=== PATIENT | female | born 1950 | race African-American/Black ===

== ENCOUNTER 2017-05-23 01:55 | Inpatient (IN) | payer OTHER ==
[2017-05-23] VITALS (13 sets, daily range): BP systolic 101–171; BP diastolic 55–80; PULSE 64–108; RESP 14–26; TEMP 97.8–98.8; O2SAT 96–100
[~2017-05-23] VITALS: Ht 167.6 cm; Wt 107.6 kg
[~2017-05-23 01:55] MED LIST: ENAL10; KETO10 PO; POTA-267 PO; SYNT100T OR; [UNRECOGNIZED DRUG - OTHER]
[2017-05-23] MEDS ORDERED: RESP: ALBUTEROL 2.5 MG/IPRATROPIUM 0.5 MG NEB (SCH) NEB ONE (02:15)
[2017-05-23] MEDS ORDERED: SYMB160A INH (02:17)
[2017-05-23] MEDS ORDERED: VALS1TAB63 PO (02:24)
[2017-05-23] MEDS ORDERED: DAPA1TAB3 PO (02:24)
[2017-05-23] MEDS ORDERED: BUME1TAB PO (02:24)
[2017-05-23] MEDS ORDERED: LEVO.1 PO (02:24)
[2017-05-23] MEDS ORDERED: METF1000 PO (02:24)
[2017-05-23] MEDS: RESP: ALBUTEROL 2.5 MG/IPRATROPIUM 0.5 MG NEB (SCH) INH ×7 (02:27→04:00)
--- NOTE | 2017-05-23 02:28 | PD ---
HPI Chief Complaint: Respiratory Symptoms Time Seen by Provider: 02:11 Travel History International Travel<30 days: No Contact w/Intl Traveler<30days: No Traveled to known affect area: No History of Present Illness HPI The patient is a 66 year old female who presents to the [facility] emergency department with a history of undergoing of parathyroidectomy on May 10 and awakening from sound sleep at 1 AM with shortness of breath. She reports that she felt well prior to going to bed. She denies having any lower extremity edema, calf pain, erythema, or rashes. The patient reports that she does use an inhaler mainly during season changes for shortness of breath. She is unsure of the diagnosis. She reports that she did smoke cigarettes up until 2008. She reports that she has wheezing. She denies having any cough or congestion. She denies having any recent fevers or chills. She does report having nausea and vomiting one time earlier today. She denies having any diarrhea. She denies having any chest pain or chest pressure. The patient incidentally reports that she has had a hoarse quality to her voice since having her surgery. On review of systems otherwise, she denies having any increase neck pain or swelling, abdominal pain, urinary symptoms, or neurologic symptoms. FOR[facility]LY [facility] Past Medical History Narrative Medical The patient's past medical history is significant for diabetes, osteoporosis, hypertension, hyperlipidemia, hypothyroidism status post thyroidectomy, history of breast cancer. Asthma: Yes Cancer: Yes (breast) Diminished Hearing: No Thyroid Disease: Yes Tetanus Vaccination: < 5 Years Influenza Vaccination: Yes ?: Not LMP: menapause Past Surgical History Narrative Surgical The patient's past surgical history is significant for bilateral breast biopsies that were benign, bilateral tubal ligation, thyroidectomy, parathyroidectomy Other Surgery: Yes (thyriod and parathyroid) Social History Alcohol Use: No Tobacco Use: No Substance Use: No Allergies-Medications (Allergen,Severity, Reaction): Coded Allergies: latex (Verified Allergy, Unknown, 05/23/17) enalapril (Verified Adverse Reaction, Mild, cough, 05/23/17) Reported Meds & Prescriptions Reported Meds & Active Scripts Active Reported Synthroid (Levothyroxine Sodium) 100 Mcg Tab 100 Mcg PO DAILY Bumetanide 1 Mg Tab 1 Mg PO DAILY Farxiga (Dapagliflozin) 10 Mg Tab 10 Mg PO DAILY Metformin (Metformin HCl) 1,000 Mg Tab 1,000 Mg PO BIDPC Valsartan 40 Mg Tab 20 Mg PO BID Symbicort Inh (Budesonide/Formoterol Fumarate) 160-4.5 Mcg/Act Aero 1 Puff INH Q12HR Review of Systems Except as stated in HPI: all other systems reviewed are Neg General / Constitutional: No: Fever Eyes: No: Visual changes HENT: No: Headaches, Neck Stiffness Cardiovascular: Positive: Dyspnea on exertion, No: Chest Pain or Discomfort Respiratory: Positive: Shortness of Breath, Wheezing Gastrointestinal: Positive: Nausea, Vomiting, No: Diarrhea, Abdominal Pain Genitourinary: No: Dysuria Musculoskeletal: No: Pain Skin: No Rash Neurologic: No: Weakness Psychiatric: No: Depression Endocrine: No: Polydipsia Hematologic/Lymphatic: No: Easy Bruising Physical Exam Narrative General: The patient is a well-developed well-nourished female, short of breath on arrival with audible wheezes. Head and Neck exam: Head is normocephalic atraumatic. Eyes: EOMI, pupils are equal round and reactive to light. Nose: Midline septum with pink mucous membranes Mouth: Dentition unremarkable. Moist mucus membranes. Posterior oropharynx is not erythematous. No tonsillar hypertrophy. Uvula midline. Airway patent. Neck: No palpable lymphadenopathy. No nuchal rigidity. No thyromegaly. A Band- Aid is in place on the anterior lower neck. There is no edema, warmth, drainage , or erythema noted at the postoperative site. Cardiovascular: Regular rate and rhythm without murmurs, gallops, or rubs. No pulse deficit to the extremities on simultaneous auscultation and palpation of her radial artery. Lungs: Soft expiratory wheezes are audible, and inspiratory wheeze/possible stridor was also audible. No rhonchi, no crackles. No accessory muscle use noted. No tripoding. No conversational dyspnea. Abdomen: Soft, without tenderness to palpation in all 4 quadrants of the abdomen. No guarding, rebound, or rigidity. Normal bowel sounds are audible. No tenderness on palpation of McBurney's point. Extremities: No clubbing, cyanosis, or edema. 2+ pulses in all 4 extremities. No calf tenderness on palpation. Negative Homans sign. No palpable cords. Back: No costovertebral angle tenderness to palpation. Neurologic Exam: Grossly nonfocal. Skin Exam: No rash noted. Intact skin that is warm and dry. Data Data Last Documented VS Vital Signs Date Time Temp Pulse Resp B/P (MAP) Pulse Ox O2 Delivery O2 Flow Rate FiO2 05/23/17 05:18 96 Nasal Cannula 2.00 05/23/17 04:15 18 05/23/17 02:40 21 05/23/17 02:13 89 05/23/17 01:59 98.0 Orders Orders Albuterol-Ipratropium Neb (Duoneb Neb) (05/23/17 02:15) Complete Blood Count With Diff (05/23/17 02:21) Comprehensive Metabolic Panel (05/23/17 02:21) B-Type Natriuretic Peptide (05/23/17 02:21) Act Partial Throm Time (Ptt) (05/23/17 02:21) Prothrombin Time / Inr (Pt) (05/23/17 02:21) Magnesium (Mg) (05/23/17 02:21) Ckmb (Isoenzyme) Profile (05/23/17 02:21) Troponin I (05/23/17 02:21) Urinalysis - C+S If Indicated (05/23/17 02:21) Iv Access Insert/Monitor (05/23/17 02:21) Electrocardiogram (05/23/17 02:21) Ecg Monitoring (05/23/17 02:21) Oximetry (05/23/17 02:21) Oxygen Administration (05/23/17 02:21) Chest, Single Ap (05/23/17 02:21) Sodium Chloride 0.9% Flush (Ns Flush) (05/23/17 02:30) Methylprednisolone So Succ Inj (Solumedr (05/23/17 02:30) Albuterol-Ipratropium Neb (Duoneb Neb) (05/23/17 02:30) D-Dimer (05/23/17 02:28) Ct Soft Tiss Neck W Iv Cont (05/23/17 02:46) CKMB (05/23/17 02:30) CKMB% (05/23/17 02:30) Albuterol-Ipratropium Neb (Duoneb Neb) (05/23/17 03:30) Iohexol 350 Inj (Omnipaque 350 Inj) (05/23/17 03:56) Racemic Epinephrine 2.25% Neb (Racepinep (05/23/17 05:00) Radiology Film Requests (05/23/17 ) Consult General Surgery (05/23/17 ) Invasive Rad Dept Consult (05/23/17 ) Admit Order (Ed Use Only) (05/23/17 06:37) Labs Laboratory Tests Test 05/23/17 02:30 White Blood Count 8.6 TH/MM3 Red Blood Count 4.33 MIL/MM3 Hemoglobin 10.5 GM/DL Hematocrit 33.5 % Mean Corpuscular Volume 77.3 FL Mean Corpuscular Hemoglobin 24.3 PG Mean Corpuscular Hemoglobin Concent 31.5 % Red Cell Distribution Width 17.3 % Platelet Count 215 TH/MM3 Mean Platelet Volume 10.1 FL Neutrophils (%) (Auto) 52.8 % Lymphocytes (%) (Auto) 37.8 % Monocytes (%) (Auto) 8.1 % Eosinophils (%) (Auto) 0.9 % Basophils (%) (Auto) 0.4 % Neutrophils # (Auto) 4.5 TH/MM3 Lymphocytes # (Auto) 3.2 TH/MM3 Monocytes # (Auto) 0.7 TH/MM3 Eosinophils # (Auto) 0.1 TH/MM3 Basophils # (Auto) 0.0 TH/MM3 CBC Comment DIFF FINAL Differential Comment Prothrombin Time 11.1 SEC Prothromb Time International Ratio 1.1 RATIO Activated Partial Thromboplast Time 25.4 SEC D-Dimer Quantitative (PE/DVT) 0.95 MG/L FEU Blood Urea Nitrogen 19 MG/DL Creatinine 1.51 MG/DL Random Glucose 150 MG/DL Total Protein 7.1 GM/DL Albumin 3.4 GM/DL Calcium Level 8.5 MG/DL Magnesium Level 2.3 MG/DL Alkaline Phosphatase 71 U/L Aspartate Amino Transf (AST/SGOT) 18 U/L Alanine Aminotransferase (ALT/SGPT) 33 U/L Total Bilirubin 0.2 MG/DL Sodium Level 142 MEQ/L Potassium Level 3.7 MEQ/L Chloride Level 106 MEQ/L Carbon Dioxide Level 25.3 MEQ/L Anion Gap 11 MEQ/L Estimat Glomerular Filtration Rate 42 ML/MIN Total Creatine Kinase 149 U/L Creatine Kinase MB 0.8 NG/ML Troponin I LESS THAN 0.02 NG/ML B-Type Natriuretic Peptide 8 PG/ML MDM Medical Decision Making Medical Screen Exam Complete: Yes Emergency Medical Condition: Yes Medical Record Reviewed: Yes Interpretation(s) Last Impressions Neck CT 05/23/17 0246 Signed Impressions: Service Date/Time: Tuesday, May 23, 2017 03:56 - CONCLUSION: 1. 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 2. Postsurgical findings in the low neck recent thyroid surgery. There is a focal fluid collection measuring 4.3 x 1.5 cm anterior to the thyroid. Brandon Ortega MD Chest X-Ray 05/23/17220 Signed Impressions: Service Date/Time: Tuesday, May 23, 2017 02:38 - CONCLUSION: Fullness and indistinctness of the central bronchopulmonary markings suggesting pulmonary edema. Brandon Ortega MD Differential Diagnosis Reactive airway exacerbation from seasonal allergies, versus stridor from postoperative hematoma, versus postoperative abscess, versus pulmonary embolism , versus COPD Narrative Course During the course of the patient's emergency department visit, the patient's history, examination, and differential diagnosis were reviewed with the patient. The patient was placed on a cardiac catheterization technician with oximetry and frequent blood pressure monitoring. The patient had IV access obtained and blood work sent for analysis. The patient had an EKG done on arrival that shows a sinus rhythm with a first-degree AV block at rate of 86, QRS duration 78 ms, QTC [address] with contrast of the soft tissues of the neck was ordered. The patient was initially provided duo nebs 3, Solu-Medrol 125 mg IV. The patient's laboratory studies were reviewed and remarkable for a white count of 8.6, hemoglobin 10.5, platelets 215 with a monocytosis at 8.1. CMP is remarkable for BUN of 19, creatinine 1.51, glucose 150, cardiac enzymes within normal limits, BNP is 8, PT PTT within normal limits, d-dimer 0.95 Radiology studies were reviewed and remarkable for chest x-ray that shows fullness and indistinction of the central bronchopulmonary markings suggesting pulmonary edema. CT scan of the neck with contrast reveals severe concentric narrowing of the supraglottic airway to less than 3 mm, postsurgical findings in the low neck related to recent thyroid surgery. There is a focal fluid collection measuring 4.3 x 1.5 cm anterior to the thyroid. At approximately 5:50 AM I received a call back from the physician assistant refinery operator covering for the nuclear fuels reclamation engineer, , at the [facility]. The physician assistant refinery operator is Flaquito Levy. I discussed with him the patient's history, examination findings, laboratory studies, and imaging. I expressed to him my concern about the patient's fluid collection in the anterior neck postop as well as the patient's supraglottic airway narrowing. He reported to me that he will discuss this further with his attendings and call me back to determine the best plan of care for the patient. I explained that the patient is currently resting comfortably and feeling improved. She is on supplemental oxygen at 2 L. The patient did receive racemic epinephrine as a nebulizer treatment. The patient is made aware of the imaging findings and is awaiting a plan of care. He reviewed the case with his attending and they recommended that the patient be admitted for close observation and to the intensive care unit. A call has been placed out to the social studies teacher on-call regarding this patient's case. A call has also been placed out to the general surgeon on-call, Dr. Rosales. These 2 calls were placed out at approximately 6 AM. I spoke to at approximately 6:10 AM regarding patient's history, examination findings and imaging results. He will see the patient in consultation. He recommended a consultation with interventional radiology for ultrasound-guided drainage catheter placement in the fluid collection that is present postoperatively. The patient's results were discussed with the patient, including the plan of care. I explained that further testing and/ or monitoring is indicated based on the patient's history, examination, and/ or laboratory findings. Therefore, I recommended admission for additional evaluation. The patient expressed understanding and was agreeable with this plan. The patient was admitted to the hospital in guarded condition and sent to a bed under the care of the social studies teacher service. Physician Communication Physician Communication The patient's case including history, pertinent physical examination findings, and laboratory studies were discussed with the covering healthcare provider for Dr. Hilliard at the [facility], Dr. Rosales, and Dr. Villasenor. It was agreed that the patient would be admitted to the social studies teacher's service. Diagnosis Primary Impression: Supraglottic edema Additional Impressions: Fluid collection at surgical site Qualified Codes: T88.8XXA - Other specified complications of surgical and medical care, not elsewhere classified, initial encounter Shortness of breath Admitting Information Admitting Physician Requests: Admit Sherri Sierra MD May 23, 2017 02:28
[2017-05-23] MEDS ORDERED: methylPREDNISolone SOD SUCC 125 MG/2 ML VIAL IV PUSH ONE (02:30)
[2017-05-23] MEDS ORDERED: SODIUM CHLORIDE 0.9% FLUSH 10 ML FLUSH IVF PRN (02:30)
[2017-05-23 02:47] LABS: AUTOMATED NEUTROPHIL # 4.5 TH/MM3 (1.8-7.7); BASOPHIL % 0.4 % (0.0-2.0); EOSINOPHIL # 0.1 TH/MM3 (0-0.4); EOSINOPHIL % 0.9 % (0.0-4.0); HEMATOCRIT 33.5 % (35.0-46.0); HEMOGLOBIN 10.5 GM/DL (11.6-15.3); LYMPH % 37.8 % (9.0-44.0); LYMPHOCYTE # 3.2 TH/MM3 (1.0-4.8); MEAN CELL VOLUME 77.3 FL (80.0-100.0); MEAN CORPUSCULAR HEMOGLOBIN 24.3 PG (27.0-34.0); MEAN CORPUSCULAR HGB CONC 31.5 % (32.0-36.0); MEAN PLATELET VOLUME 10.1 FL (7.0-11.0); MONO % 8.1 % (0.0-8.0); MONOCYTE # 0.7 TH/MM3 (0-0.9); NEUT % 52.8 % (16.0-70.0); PLATELET COUNT 215 TH/MM3 (150-450); RED BLOOD COUNT 4.33 MIL/MM3 (4.00-5.30); RED CELL DISTRIBUTION WIDTH 17.3 % (11.6-17.2); WHITE BLOOD COUNT 8.6 TH/MM3 (4.0-11.0)
[2017-05-23 03:02] LABS: ALBUMIN 3.4 GM/DL (3.4-5.0); ALT (GPT) 33 U/L (10-53); AST (GOT) 18 U/L (15-37); BICARBONATE 25.3 MEQ/L (21.0-32.0); BLOOD UREA NITROGEN 19 MG/DL (7-18); CALCIUM 8.5 MG/DL (8.5-10.1); CHLORIDE 106 MEQ/L (98-107); CREATININE 1.51 MG/DL (0.50-1.00); GLOMERULAR FILTRATION RATE 42 ML/MIN (>89); GLUCOSE,RANDOM 150 MG/DL (74-106); MAGNESIUM 2.3 MG/DL (1.5-2.5); SODIUM (NA) 142 MEQ/L (136-145)
[2017-05-23 03:03] LABS: INTERNATIONAL NORMALIZED RATIO 1.1 RATIO; PROTHROMBIN TIME - PATIENT 11.1 SEC (9.8-11.6)
[2017-05-23 03:06] LABS: ALKALINE PHOSPHATASE 71 U/L (45-117); TOTAL BILIRUBIN ADULT 0.2 MG/DL (0.2-1.0); TOTAL PROTEIN 7.1 GM/DL (6.4-8.2); TROPONIN I LESS THAN 0.02 NG/ML (0.02-0.05)
--- NOTE | 2017-05-23 03:07 | RADRPT ---
EXAM DATE/TIME: 05/23/2017 02:38 [facility] COMPARISON: No previous studies available for comparison. INDICATIONS : Short of breath. MEDICAL HISTORY : None. SURGICAL HISTORY : None. ENCOUNTER: Initial ACUITY: 1 day PAIN SCORE: 0/10 LOCATION: Bilateral chest FINDINGS: There is indistinctness of the central bronchopulmonary markings and mild peribronchial thickening morgan ggesting pulmonary edema. The heart is upper limits normal size. Both hemidiaphragms are well delin eated. CONCLUSION: Fullness and indistinctness of the central bronchopulmonary markings suggesting pulmonary edema. Brandon Ortega MD on May 23, 2017 at 3:05 Board Certified Radiologist. This report was verified electronically.
[2017-05-23] MEDS ORDERED: IOHEXOL 350 MG/ML 10 ML VIAL (for RAD DIAG) IVCONTRAST ONE (03:56)
--- NOTE | 2017-05-23 04:30 | RADRPT ---
EXAM DATE/TIME: 05/23/2017 03:56 [facility] COMPARISON: No previous studies available for comparison. INDICATIONS : Difficulty breathing. Post op thyroidectomy IV CONTRAST: 70 cc Omnipaque 350 (iohexol) IV RADIATION DOSE: 27.09 CTDIvol (mGy) MEDICAL HISTORY : Carcinoma, breast. Asthma SURGICAL HISTORY : Thyroidectomy. ENCOUNTER: Initial ACUITY: 1 day PAIN SCALE: 4/10 LOCATION: neck chest TECHNIQUE: Volumetric scanning of the neck was performed. Using automated exposure control and adjustment of th e mA and/or kV according to patient size, radiation dose was kept as low as reasonably achievable to obtain optimal diagnostic quality images. DICOM format image data is available electronically for r eview and comparison. FINDINGS: NASOPHARYNX: The nasopharyngeal airway has a normal configuration. No mucosal thickening or mass is seen. OROPHARYNX: The intrinsic muscles of the tongue are symmetric. The tonsillar pillars are intact. The prevertebr al soft tissues are not thickened. LARYNX: There is concentric severe narrowing of the supraglottic airway the airway narrowed to 3 mm at this p oint. Normal diameter at the level of the true cords and subglottic region. PARAPHARYNGEAL: The parapharyngeal space is intact. SALIVARY GLANDS: The parotid and submandibular glands are intact. LYMPH NODES: No enlarged or necrotic-appearing nodes. THYROID: The left lobe of the thyroid has decreased enhancement suggesting nodule. There is subcutaneous flui d collection anterior to the thyroid measuring 4.3 x 1.5 cm, probably related to recent surgery. BONES: Unremarkable. CONCLUSION: 1. 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 2. Postsurgical findings in the low neck recent thyroid surgery. There is a focal fluid collection m easuring 4.3 x 1.5 cm anterior to the thyroid. Brandon Ortega MD on May 23, 2017 at 4:26 Board Certified Radiologist. This report was verified electronically.
[2017-05-23] MEDS ORDERED: RESP: RACEPINEPHRINE 2.25% 0.5 ML NEB NEB ONE (05:00)
--- NOTE | 2017-05-23 08:44 | EKG ---
Date Performed: 05/23/2017 Time Performed: 02:17:37 PTAGE: 66 years EKG: Sinus rhythm WITH FIRST DEGREE AV BLOCK LOW QRS VOLTAGE IN PRECORDIAL LEADS ABNORMAL ECG NO PREVIOUS TRACING DOCTOR: Juwan Richards Interpretating Date/Time 05/23/2017 08:27:00
[2017-05-23] MEDS ORDERED: LACTULOSE SYRUP 20 GM/30 ML CUP PO PRN (09:15)
[2017-05-23] MEDS ORDERED: GLUCAGON 1 MG/ML VIAL OTHER PRN (09:15)
[2017-05-23] MEDS ORDERED: RESP: ALBUTEROL 2.5 MG/IPRATROPIUM 0.5 MG NEB (PRN) INH (09:15)
[2017-05-23] MEDS ORDERED: SENNOSIDES 8.6 MG TAB PO PRN (09:15)
[2017-05-23] MEDS ORDERED: MAGNESIUM HYDROXIDE SUSP 30 ML CUP PO PRN (09:15)
[2017-05-23] MEDS ORDERED: MISCELLANEOUS NURSING INFORMATION XX SCH (09:15)
[2017-05-23] MEDS ORDERED: CHLORHEXIDINE GLUCONATE 2 % 1 PACK (2 CLOTHS) TOP PRN (09:15)
[2017-05-23] MEDS ORDERED: DEXTROSE 50% IN WATER 50 ML VIAL(D50) IV PUSH PRN (09:15)
[2017-05-23] MEDS ORDERED: BISACODYL 10 MG SUPP RECTAL PRN (09:15)
[2017-05-23] MEDS ORDERED: ROCURONIUM INJ 50 MG/5 ML VIAL IV ONE (09:45)
[2017-05-23] MEDS ORDERED: KETAMINE HCL 500 MG/5 ML VIAL IM ONE (09:45)
[2017-05-23] MEDS ORDERED: RESP: RACEPINEPHRINE 2.25% 0.5 ML NEB NEB PRN (09:45)
[2017-05-23] MEDS ORDERED: OXYMETAZOLINE HCL 0.05% 15 ML NASAL SPRAY NASAL ONE (09:45)
[2017-05-23] MEDS ORDERED: PROPOFOL 1000 MG/100 ML INJ 100 ML IV PRN (09:45)
[2017-05-23] MEDS ORDERED: MIDAZOLAM HCL 5 MG/ML VIAL (1 ML) IV PUSH ONE (09:45)
[2017-05-23] MEDS ORDERED: fentaNYL CITRATE 250 MCG/5 ML AMP IV PUSH ONE (09:45)
[2017-05-23] MEDS ORDERED: PILL SPLITTER OTHER PRN (09:45)
[2017-05-23] MEDS ORDERED: LIDOCAINE HCL 1% 50 ML VIAL INFIL ONE (09:45)
[2017-05-23] MEDS ORDERED: LIDOCAINE HCL 1% PF 30 ML VIAL INFIL ONE (10:30)
[2017-05-23] MEDS: PROPOFOL 1000 MG/100 ML INJ 100 ML IV PRN ×3 (11:00→21:52)
[2017-05-23] MEDS ORDERED: LABETALOL HCL 100 MG/20 ML VIAL IV PUSH PRN (11:30)
--- NOTE | 2017-05-23 11:43 | HHI.HP ---
[facility] Service Critical Care Medicine Primary Care Physician Fady Lundy III, MD Admission Diagnosis Supraglottic airway constriction, postop fluid collection of neck Diagnosis: (1) Acute respiratory failure Diagnosis: Principal (2) Supraglottic edema Diagnosis: Principal (3) Shortness of breath Diagnosis: Principal (4) Fluid collection at surgical site Diagnosis: Secondary Chief Complaint: I can't breathe. Travel History International Travel<30 Days: No Contact w/Intl Traveler <30 Da: No Traveled to Known Affected Are: No History of Present Illness 66 y/o woman s/p parathyroidectomy May 10 at [facility] (second operation for patient in the thyroid region). Developed severe SOB earlier today and came to ED with sridor and labored effort. She responded to racemic epinephrine but required 5 treatments over several hours because of recurrent symptoms. On arrival to [facility] she was tugging very mildly but with any exertion the strider worsened drastically. CT neck revealed supraglottic tissue obstructing airway. We attempted to ispect airway using low dose versed but the view was inadequate. With deeper sedation and relaxant the hypopharynx was easily inspected. All of the soft tissue was easily moved aside and this area was widely patent. The vocal cords were not edematous or inflamed. The glottic opening was slightly small but easily accommodated a #7 orotracheal tube. Below the cords was normal. My gut impression is that this is vocal cord dysfunction related to nerve praxis , probably temporary. Past Family Social History Allergies: Coded Allergies: No Known Allergies (Unverified Adverse Reaction, Unknown, 05/23/17) Past Medical History Past Medical History Narrative Medical The patient's past medical history is significant for diabetes, osteoporosis, hypertension, hyperlipidemia, hypothyroidism status post thyroidectomy, history of breast cancer. Asthma: Yes Cancer: Yes (breast) Diminished Hearing: No Thyroid Disease: Yes Tetanus Vaccination: < 5 Years Influenza Vaccination: Yes ?: Not LMP: menapause Past Surgical History Narrative Surgical The patient's past surgical history is significant for bilateral breast biopsies that were benign, bilateral tubal ligation, thyroidectomy, parathyroidectomy Other Surgery: Yes (thyriod and parathyroid) Social History Alcohol Use: No Tobacco Use: No Substance Use: No Allergies-Medications Allergies-Medications (Allergen,Severity, Reaction): Coded Allergies: No Known Allergies (Unverified Adverse Reaction, Unknown, 05/23/17) Reported Meds & Prescriptions Reported Meds & Active Scripts Active Reported Synthroid (Levothyroxine Sodium) 100 Mcg Tab 100 Mcg PO DAILY Bumetanide 1 Mg Tab 1 Mg PO DAILY Farxiga (Dapagliflozin) 10 Mg Tab 10 Mg PO DAILY Metformin (Metformin HCl) 1,000 Mg Tab 1,000 Mg PO BIDPC Valsartan 40 Mg Tab 20 Mg PO BID Symbicort Inh (Budesonide/Formoterol Fumarate) 160-4.5 Mcg/Act Aero 1 Puff INH Q12HR Physical Exam Vital Signs Vital Signs Date Time Temp Pulse Resp B/P (MAP) Pulse Ox O2 Delivery O2 Flow Rate FiO2 05/23/17 11:05 98 60 05/23/17 10:10 05/23/17 09:32 97.9 99 19 143/74 (97) Room Air 05/23/17 05:18 96 Nasal Cannula 2.00 05/23/17 04:15 100 Nasal Cannula 2.00 05/23/17 04:15 18 100 Nasal Cannula 2.00 05/23/17 02:40 100 21 05/23/17 02:25 99 Nasal Cannula 2.00 05/23/17 02:13 89 26 171/80 (110) 100 Aerosol Mask 05/23/17 02:13 89 28 99 Aerosol Mask 05/23/17 01:59 98.0 95 24 157/70 (99) 99 Physical Exam Gen: Alert, hoarse speech since surgery on 05/10. Head: Atraumatic. Neck: Supple, audible stridor. General fullness, healing anterior transverse scar. Lungs: Clear aside from transmitted airway noises. Labored pattern Heart: NL S1S2, RRR, No JVD. Abdomen: Benign, soft. BS active. No tenderness. Extremities: Warm, well perfused. Neuro: Moves 4 limbs with 5/5 power. O X 3, alert. Hoarse speech. Laboratory Laboratory Tests Test 05/23/17 02:30 White Blood Count 8.6 Red Blood Count 4.33 Hemoglobin 10.5 Hematocrit 33.5 Mean Corpuscular Volume 77.3 Mean Corpuscular Hemoglobin 24.3 Mean Corpuscular Hemoglobin Concent 31.5 Red Cell Distribution Width 17.3 Platelet Count 215 Mean Platelet Volume 10.1 Neutrophils (%) (Auto) 52.8 Lymphocytes (%) (Auto) 37.8 Monocytes (%) (Auto) 8.1 Eosinophils (%) (Auto) 0.9 Basophils (%) (Auto) 0.4 Neutrophils # (Auto) 4.5 Lymphocytes # (Auto) 3.2 Monocytes # (Auto) 0.7 Eosinophils # (Auto) 0.1 Basophils # (Auto) 0.0 CBC Comment DIFF FINAL Differential Comment Prothrombin Time 11.1 Prothromb Time International Ratio 1.1 Activated Partial Thromboplast Time 25.4 D-Dimer Quantitative (PE/DVT) 0.95 Blood Urea Nitrogen 19 Creatinine 1.51 Random Glucose 150 Total Protein 7.1 Albumin 3.4 Calcium Level 8.5 Magnesium Level 2.3 Alkaline Phosphatase 71 Aspartate Amino Transf (AST/SGOT) 18 Alanine Aminotransferase (ALT/SGPT) 33 Total Bilirubin 0.2 Sodium Level 142 Potassium Level 3.7 Chloride Level 106 Carbon Dioxide Level 25.3 Anion Gap 11 Estimat Glomerular Filtration Rate 42 Total Creatine Kinase 149 Creatine Kinase MB 0.8 Troponin I LESS THAN 0.02 B-Type Natriuretic Peptide 8 Result Diagram: 05/23/1722905/23/17229 Caprini VTE Risk Assessment Caprini VTE Risk Assessment: Mod/High Risk (score >= 2) Caprini Risk Assessment Model Point Value = 1 Point Value = 2 Point Value = 3 Point Value = 5 Age 41-60 Minor surgery BMI > 25 kg/m2 Swollen legs Varicose veins or History of unexplained or recurrent spontaneous Oral contraceptives or hormone replacement Sepsis (< 1 month) Serious lung disease, including pneumonia (< 1 month) Abnormal pulmonary function Acute myocardial infarction Congestive heart failure (< 1 month) History of inflammatory bowel disease Medical patient at bed rest Age 61-74 Arthroscopic surgery Major open surgery (> 45 min) Laparoscopic surgery (> 45 min) Malignancy Confined to bed (> 72 hours) Immobilizing plaster cast Central venous access Age >= 75 History of VTE Family history of VTE Factor V Leiden Prothrombin [id number] Lupus anticoagulant Anticardiolipin antibodies Elevated serum homocysteine Heparin-induced thrombocytopenia Other congenital or acquired thrombophilia Stroke (< 1 month) Elective arthroplasty Hip, pelvis, or leg fracture Acute spinal cord injury (< 1 month) Prophylaxis Regimen Total Risk Factor Score Risk Level Prophylaxis Regimen 0-1 Low Early ambulation 2 Moderate Order ONE of the following: *Sequential Compression Device (SCD) *Heparin 5000 units SQ BID 3-4 Higher Order ONE of the following medications: *Heparin 5000 units SQ TID *Enoxaparin/Lovenox 40 mg SQ daily (WT < 150 kg, CrCl > 30 mL/min) *Enoxaparin/Lovenox 30 mg SQ daily (WT < 150 kg, CrCl > 10-29 mL/min) *Enoxaparin/Lovenox 30 mg SQ BID (WT < 150 kg, CrCl > 30 mL/min) AND/OR *Sequential Compression Device (SCD) 5 or more Highest Order ONE of the following medications: *Heparin 5000 units SQ TID (Preferred with Epidurals) *Enoxaparin/Lovenox 40 mg SQ daily (WT < 150 kg, CrCl > 30 mL/min) *Enoxaparin/Lovenox 30 mg SQ daily (WT < 150 kg, CrCl > 10-29 mL/min) *Enoxaparin/Lovenox 30 mg SQ BID (WT < 150 kg, CrCl > 30 mL/min) AND *Sequential Compression Device (SCD) Assessment and Plan Problem List: (1) Acute respiratory failure ICD Code: J96.00 - Acute respiratory failure, unspecified whether with hypoxia or hypercapnia (2) Fluid collection at surgical site ICD Code: T88.8XXA - Other specified complications of surgical and medical care , not elsewhere classified, initial encounter Status: Acute (3) Shortness of breath ICD Code: R06.02 - Shortness of breath Status: Acute (4) Supraglottic edema ICD Code: J38.4 - Edema of larynx Status: Acute Assessment and Plan Plan: 1. Intubate. 2. PRVC vent mode. 3. Decadron 4 mg iv q6h. 4. HOB up 30-45 degrees. 5. SSI for euglycemia. 6. Lovenox DVT px. 7. Pepcid. 8. NG to decompression and meds. 9. ENT consult. Overall impression: Patient presents critically ill with upper airway obstruction. After visualization, hypopharynx appears widely patent and cords are normal. Relaxant required so cord motion not appreciated. This crescendo stridor pattern with exertion s/p recent parathyroid surgery behaves like vocal cord dysfunction. I will ask the ENT service to evaluate. Critical care 40 mins aside from procedures Problem Qualifiers (1) Fluid collection at surgical site: Qualified Codes: T88.8XXA - Other specified complications of surgical and medical care, not elsewhere classified, initial encounter Didier Solano MD May 23, 2017 11:43
[2017-05-23] MEDS ORDERED: RESP: ALBUTEROL 2.5 MG/IPRATROPIUM 0.5 MG NEB (SCH) INH (12:00)
[2017-05-23] MEDS: INSULIN NovoLIN REGULAR SUPPLEMENTAL SCALE SQ SCH ×4 (12:00→23:49)
[2017-05-23] MEDS: fentaNYL DRIP 250 ML IV PRN (12:55)
[2017-05-23] MEDS: VALSARTAN 40 MG TAB PO SCH ×2 (13:00→20:04)
--- NOTE | 2017-05-23 13:40 | PD.CONS ---
HPI Service General surgery Consult Requested By Dr. Plaza Reason for Consult Airway obstruction after parathyroidectomy Primary Care Physician Fady Lundy III, MD History of Present Illness 66-year-old female who reportedly underwent parathyroidectomy on May 10 at [facility]. Yesterday she developed respiratory distress and stridor and presented to the emergency department. CT of the abdomen and pelvis showed severe supraglottic narrowing and there is a small fluid collection in the anterior subcutaneous tissues. She received racemic epinephrine. Reportedly she appeared calmer with less respiratory distress ISE. However, she again worsened after exertion and therefore was intubated. There was no obstruction. The vocal cords not able to be visualized prior to intubation. She is now intubated and sedated. There is report of previous thyroidectomy in the remote past. Review of Systems ROS Limitations: Intubated Past Family Social History Past Medical History Diabetes, osteoporosis, hypertension, hyperlipidemia, hypothyroidism status post thyroidectomy, history of breast cancer. Past Surgical History Parathyroidectomy May 10 Thyroidectomy Bilateral tubal ligation Reported Medications Reported Meds & Active Scripts Active Reported Synthroid (Levothyroxine Sodium) 100 Mcg Tab 100 Mcg PO DAILY Bumetanide 1 Mg Tab 1 Mg PO DAILY Farxiga (Dapagliflozin) 10 Mg Tab 10 Mg PO DAILY Metformin (Metformin HCl) 1,000 Mg Tab 1,000 Mg PO BIDPC Valsartan 40 Mg Tab 20 Mg PO BID Symbicort Inh (Budesonide/Formoterol Fumarate) 160-4.5 Mcg/Act Aero 1 Puff INH Q12HR Allergies: Coded Allergies: No Known Allergies (Unverified Adverse Reaction, Unknown, 05/23/17) Active Ordered Medications Current Medications Medications (Trade) Dose Ordered Sig/Elin Route Start Time Stop Time Status Last Admin (NS Flush) 2 ml UNSCH PRN IVF 05/23/17 02:30 (Pepcid Inj) 10 mg Q12HR IV PUSH 05/23/17 21:00 (Duoneb Neb) 1 ampule Q2HR NEB PRN INH 05/23/17 09:15 Miscellaneous Information 1 Q361D XX 05/23/17 09:15 05/23/17 09:15 (Chlorhexidine 2% Cloth) 3 pack Taper DAILY@04 TOP 05/24/17 04:00 05/20/18 03:59 (Chlorhexidine 2% Cloth) 3 pack UNSCH PRN TOP 05/23/17 09:15 (Flaca-Colace) 1 tab BID PO 05/23/17 21:00 (Milk Of Magnesia Liq) 30 ml Q12H PRN PO 05/23/17 09:15 (Senokot) 17.2 mg Q12H PRN PO 05/23/17 09:15 (Dulcolax Supp) 10 mg DAILY PRN RECTAL 05/23/17 09:15 (Lactulose Liq) 30 ml DAILY PRN PO 05/23/17 09:15 (D50w (Vial) Inj) 50 ml UNSCH PRN IV PUSH 05/23/17 09:15 (Glucagon Inj) 1 mg UNSCH PRN OTHER 05/23/17 09:15 (NovoLIN R SUPPLEMENTAL SCALE) 1 Q6HR SQ 05/23/17 09:15 (Pill Splitter) 1 ea UNSCH PRN OTHER 05/23/17 09:45 (Decadron Inj) 4 mg Q6H IV PUSH 05/23/17 14:00 (Peridex 0.12% Liq) 15 ml BID@08,20 MT 05/23/17 20:00 Propofol 100 ml @ 0 mls/hr TITRATE PRN IV 05/23/17 11:00 05/23/17 11:00 Fentanyl Citrate 250 ml @ 5 mls/hr TITRATE PRN IV 05/23/17 11:00 05/23/17 12:55 (Diovan) 40 mg BID PO 05/23/17 13:00 (Trandate Inj) 20 mg Q2H PRN IV PUSH 05/23/17 11:30 Family History Noncontributory Social History No alcohol tobacco or drug use according to the chart. Physical Exam Vital Signs Vital Signs Date Time Temp Pulse Resp B/P (MAP) Pulse Ox O2 Delivery O2 Flow Rate FiO2 05/23/17 11:05 98 60 05/23/17 10:10 05/23/17 09:32 97.9 99 19 143/74 (97) Room Air 05/23/17 05:18 96 Nasal Cannula 2.00 05/23/17 04:15 100 Nasal Cannula 2.00 3/20/18 04:15 18 100 Nasal Cannula 2.00 05/23/17 02:40 100 21 05/23/17 02:25 99 Nasal Cannula 2.00 05/23/17 02:13 89 26 171/80 (110) 100 Aerosol Mask 05/23/17 02:13 89 28 99 Aerosol Mask 05/23/17 01:59 98.0 95 24 157/70 (99) 99 Physical Exam GENERAL: Intubated and sedated. HEAD: Normocephalic. Atraumatic. ENT: ET tube in place. NECK: No major external hematoma or edema. Healing incision. Band-Aid over drain site inferiorly. CHEST: Lungs clear to auscultation bilaterally with no wheezing or rhonchi. No respiratory distress. Ventilated CARDIOVASCULAR: Regular rate and rhythm. EXTREMITIES: No cyanosis or edema. SKIN: Warm, dry, nonjaundiced. Laboratory Laboratory Tests Test 05/23/17 02:30 White Blood Count 8.6 Red Blood Count 4.33 Hemoglobin 10.5 Hematocrit 33.5 Mean Corpuscular Volume 77.3 Mean Corpuscular Hemoglobin 24.3 Mean Corpuscular Hemoglobin Concent 31.5 Red Cell Distribution Width 17.3 Platelet Count 215 Mean Platelet Volume 10.1 Neutrophils (%) (Auto) 52.8 Lymphocytes (%) (Auto) 37.8 Monocytes (%) (Auto) 8.1 Eosinophils (%) (Auto) 0.9 Basophils (%) (Auto) 0.4 Neutrophils # (Auto) 4.5 Lymphocytes # (Auto) 3.2 Monocytes # (Auto) 0.7 Eosinophils # (Auto) 0.1 Basophils # (Auto) 0.0 CBC Comment DIFF FINAL Differential Comment Prothrombin Time 11.1 Prothromb Time International Ratio 1.1 Activated Partial Thromboplast Time 25.4 D-Dimer Quantitative (PE/DVT) 0.95 Blood Urea Nitrogen 19 Creatinine 1.51 Random Glucose 150 Total Protein 7.1 Albumin 3.4 Calcium Level 8.5 Magnesium Level 2.3 Alkaline Phosphatase 71 Aspartate Amino Transf (AST/SGOT) 18 Alanine Aminotransferase (ALT/SGPT) 33 Total Bilirubin 0.2 Sodium Level 142 Potassium Level 3.7 Chloride Level 106 Carbon Dioxide Level 25.3 Anion Gap 11 Estimat Glomerular Filtration Rate 42 Total Creatine Kinase 149 Creatine Kinase MB 0.8 Troponin I LESS THAN 0.02 B-Type Natriuretic Peptide 8 Result Diagram: 05/23/1722905/23/17229 Imaging Last Impressions Neck CT 05/23/17 0246 Signed Impressions: Service Date/Time: Tuesday, May 23, 2017 03:56 - CONCLUSION: 1. 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 2. Postsurgical findings in the low neck recent thyroid surgery. There is a focal fluid collection measuring 4.3 x 1.5 cm anterior to the thyroid. Brandon Ortega MD Chest X-Ray 05/23/17220 Signed Impressions: Service Date/Time: Tuesday, May 23, 2017 02:38 - CONCLUSION: Fullness and indistinctness of the central bronchopulmonary markings suggesting pulmonary edema. Brandon Ortega MD Assessment and Plan Assessment and Plan 66-year-old female with stridor and respiratory compromise after parathyroidectomy May 10 at [facility]. Case discussed with Dr. Solano. Evaluation of vocal cord function was not possible prior to intubation. 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 I agree with evaluation by ENT to assess vocal cord function when deemed safe. Henri Pelaez MD May 23, 2017 13:40
[2017-05-23] MEDS ORDERED: DEXAMETHASONE SOD PHOS 4 MG/ML VIAL IV PUSH SCH (14:00)
[2017-05-23] MEDS: DEXAMETHASONE SOD PHOS 4 MG/ML VIAL IV PUSH SCH ×2 (14:00→20:04)
--- NOTE | 2017-05-23 14:30 | PD.PROCEDR ---
Procedure Note Procedure Endotracheal Intubation Diagnosis: Acute respiratory failure. Stridor Indications: worsening dyspnea. Stridor Consent: procedure was explained in detail to patient and she agreed with pursuing intubation Anesthesia: a total of 10 mg gradually given and rocuronium 100 mg Description of the Procedure: The patient was positioned in the sniffing position. Pre-oxygenation was performed using a BMV. Anesthesia was induced gradually starting with low dose midazolam and attempting visualizing the upper airway, however patient required additional sedation and ultimately paralysis. A videolaryngoscope (Gradeable) size 4 was used for laryngoscopy and a Grade 1 view was obtained with small vocal cord opening but no inflammatory changes noted. A size 7mm cuffed endotracheal tube was inserted atraumatically through the vocal cords. Confirmation of correct endotracheal tube placement was made by equal and bilateral breath sounds and colorimetric CO2 detection. The endotracheal tube was secured at 23 cm at the teeth. There were no immediate complications noted. The patient remained hemodynamically stable throughout the procedure. A chest x-ray has been ordered. I personally performed the procedure. Mohit Cyr MD May 23, 2017 14:30
[2017-05-23] MEDS: FAMOTIDINE 20 MG/2 ML VIAL IV PUSH SCH (20:04)
[2017-05-23] MEDS: DOCUSATE SODIUM 50 MG/SENNA 8.6 MG TAB PO SCH (20:04)
[2017-05-23] MEDS: CHLORHEXIDINE 0.12% (ORAL KIT) 15 ML CUP MT SCH (20:05)
[2017-05-23] MEDS ORDERED: FAMOTIDINE 20 MG TAB PO SCH (21:00)
[2017-05-24] VITALS (20 sets, daily range): BP systolic 104–157; BP diastolic 52–75; PULSE 54–85; RESP 12–22; TEMP 97–98.4; O2SAT 98–100
[2017-05-24] MEDS: DEXAMETHASONE SOD PHOS 4 MG/ML VIAL IV PUSH SCH ×4 (02:13→21:27)
[2017-05-24] MEDS: PROPOFOL 1000 MG/100 ML INJ 100 ML IV PRN ×4 (02:14→14:20)
[2017-05-24] MEDS: CHLORHEXIDINE GLUCONATE 2 % 1 PACK (2 CLOTHS) TOP SCH (03:58)
[2017-05-24] MEDS: SODIUM CHLOR 0.9% 1000 ML INJ 1,000 ML IV SCH ×2 (05:06→19:34)
[2017-05-24] MEDS: INSULIN NovoLIN REGULAR SUPPLEMENTAL SCALE SQ SCH ×4 (06:00→23:57)
[2017-05-24 06:59] LABS: AUTOMATED NEUTROPHIL # 11.4 TH/MM3 (1.8-7.7); BASOPHIL % 0.1 % (0.0-2.0); HEMATOCRIT 30.4 % (35.0-46.0); HEMOGLOBIN 9.4 GM/DL (11.6-15.3); LYMPH % 6.3 % (9.0-44.0); LYMPHOCYTE # 0.8 TH/MM3 (1.0-4.8); MEAN CELL VOLUME 78.3 FL (80.0-100.0); MEAN CORPUSCULAR HEMOGLOBIN 24.2 PG (27.0-34.0); MEAN CORPUSCULAR HGB CONC 30.9 % (32.0-36.0); MEAN PLATELET VOLUME 10.2 FL (7.0-11.0); MONO % 3.2 % (0.0-8.0); MONOCYTE # 0.4 TH/MM3 (0-0.9); NEUT % 90.4 % (16.0-70.0); PLATELET COUNT 184 TH/MM3 (150-450); RED BLOOD COUNT 3.88 MIL/MM3 (4.00-5.30); WHITE BLOOD COUNT 12.6 TH/MM3 (4.0-11.0)
[2017-05-24 07:24] LABS: BICARBONATE 21.3 MEQ/L (21.0-32.0); CALCIUM 8.9 MG/DL (8.5-10.1); CREATININE 1.05 MG/DL (0.50-1.00); MAGNESIUM 2.2 MG/DL (1.5-2.5); PHOSPHORUS 3.8 MG/DL (2.5-4.9)
[2017-05-24] MEDS: CHLORHEXIDINE 0.12% (ORAL KIT) 15 ML CUP MT SCH ×2 (08:35→19:52)
[2017-05-24] MEDS: VALSARTAN 40 MG TAB PO SCH ×2 (08:36→21:19)
[2017-05-24] MEDS: FAMOTIDINE 20 MG/2 ML VIAL IV PUSH SCH ×2 (08:36→21:20)
[2017-05-24] MEDS: DOCUSATE SODIUM 50 MG/SENNA 8.6 MG TAB PO SCH ×2 (08:36→21:19)
--- NOTE | 2017-05-24 08:39 | MB ---
cc: Gilbert Anglin MD DATE: 05/23/2017 CHIEF COMPLAINT: Respiratory failure. HISTORY OF PRESENT ILLNESS: This is a 66-year-old female that is status post parathyroidectomy 05/10 at the [facility] in [place]. This would be her second surgery to this area. This information is being obtained from the chart and from her friend who is at bedside. She did well initially and went home and a day after the surgery, doing relatively well with a normal voice, according to the emergency medicine physician assistant, subsequently Monday morning began having significant shortness of breath, came into the emergency room with stridor and labored breathing. She responded to racemic epinephrine in the emergency room, 5 treatments over several hours, but her symptoms continued to recur. The stridor subsequently worsened and eventually the decision was made to intubate her for airway support. A consult was placed to ENT to determine if there is any possible cause from the possible nerve injury during the surgery on 05/10 to the recurrent laryngeal nerve. Currently, the patient is intubated and sedated in the ICU. PAST MEDICAL HISTORY: Significant for diabetes, osteoporosis, hypertension, hyperlipidemia, hypothyroidism due to thyroidectomy as well as history of breast cancer. PAST SURGICAL HISTORY: Significant for breast biopsies, tubal ligation, thyroidectomy, as well as parathyroidectomy. SOCIAL HISTORY: She has no tobacco, alcohol or substance abuse. ALLERGIES: SHE HAS NO KNOWN DRUG ALLERGIES. MEDICATIONS: Per the chart. PHYSICAL EXAMINATION: GENERAL: Person is intubated and sedated. HEENT: Performed a flexible laryngoscopy through the nasal cavity; however, it was very edematous. There is no distinct landmarks. The endotracheal tube is in place. A nasogastric tube is in place. I can see them passing through the voice box but other than that, no significant evaluation can be noted. There is a large amount of edema in the entire upper airway and supraglottic area. This is likely just from the intubation trauma as well as intubation at this moment. ASSESSMENT AND PLAN: Unfortunately, it is very difficult to determine the exact cause of her stridor at this time since she is intubated; however, it certainly possibly some involvement of the recurrent laryngeal nerve to cause stridor so soon after a parathyroid surgery; however, did not having the operative report available to me it is difficult to know whether she had a 4 gland exploration which is what would be required for them to be possibly injuring both recurrent laryngeal nerves. In order for her to have significant stridor you would imagine that she would have to have bilateral nerve praxis, paralysis or paresis. I am unsure what her recurrent laryngeal nerve situation was prior to the parathyroidectomy as she had had a previous thyroidectomy. It is possible that during her thyroid surgery, she had 1 injury to a recurrent laryngeal nerve and then on this subsequent surgery, possibly had another injury to the other recurrent laryngeal nerve. However, both of these are just guesses at this point. The stridor could have also been secondary to an allergic reaction to some medication that she had taken or something she had been exposed to. However, it still seems most likely that it is related to the surgery. The situation becomes difficult because at this point in order to determine whether the recurrent laryngeal nerves and the vocal cords are moving, she would need to be extubated; however, that would require reintubation should the nerves be completely paralyzed. Also, should the nerves both be injured, it is possible that this is a temporary process versus a more permanent process. If it is a permanent bilateral paralysis, she is going to likely require tracheostomy and be trach dependent. At this time, we will defer to the marker machine on how long he would like to rest her on the ventilator and allow her to be sedated and intubated. Once he is prepared for extubation and decides on extubating her, we will reevaluate her vocal cord motion and determine whether or not she has true recurrent laryngeal nerve injury or not. Thank you for this consultation. Gilbert Anglin MD ATT/KD , 08:04 AM , 08:37 AM
--- NOTE | 2017-05-24 08:40 | HHI.CCPN ---
Subjective Remarks/Hospital Course 66 y/o woman s/p parathyroidectomy May 10 at [facility] (second operation for patient in the thyroid region). Developed severe SOB earlier today and came to ED with sridor and labored effort. She responded to racemic epinephrine but required 5 treatments over several hours because of recurrent symptoms. On arrival to [facility] she was tugging very mildly but with any exertion the strider worsened drastically. CT neck revealed supraglottic tissue obstructing airway. We attempted to ispect airway using low dose versed but the view was inadequate. With deeper sedation and relaxant the hypopharynx was easily inspected. All of the soft tissue was easily moved aside and this area was widely patent. The vocal cords were not edematous or inflamed. The glottic opening was slightly small but easily accommodated a #7 orotracheal tube. Below the cords was normal. 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 05/24: Gas exchange normal. Probably need to examine her cords while breathing spontaneously. I will see what ENT recommends. Objective Vital Signs Date Time Temp Pulse Resp B/P (MAP) Pulse Ox O2 Delivery O2 Flow Rate FiO2 05/24/17 08:08 50 05/24/17 08:01 100 05/24/17 06:00 61 05/24/17 04:00 98.0 14 105/56 (72) 05/23/17 19:00 Mechanical Ventilator 05/23/17 05:18 2.00 Intake and Output 05/24/17 05/24/17 05/25/17 08:00 16:00 00:00 Intake Total 1509 ml Output Total 425 ml Balance 1084 ml Result Diagram: 05/24/17 0558 05/24/17 0558 Objective Remarks Gen: Alert, hoarse speech since surgery on 05/10. Head: Atraumatic. Neck: Supple, orally intubated General fullness, healing anterior transverse scar. Lungs: Clear, comfortable pattern. Heart: NL S1S2, RRR, No JVD. Abdomen: Benign, soft. BS active. No tenderness. Extremities: Warm, well perfused. Neuro: Moves 4 limbs with 5/5 power. Lightly sedated. Nods head to questions. A/P Problem List: (1) Acute respiratory failure ICD Code: J96.00 - Acute respiratory failure, unspecified whether with hypoxia or hypercapnia (2) Fluid collection at surgical site ICD Code: T88.8XXA - Other specified complications of surgical and medical care , not elsewhere classified, initial encounter Status: Acute (3) Shortness of breath ICD Code: R06.02 - Shortness of breath Status: Acute (4) Supraglottic edema ICD Code: J38.4 - Edema of larynx Status: Acute Assessment and Plan Plan: 1. Intubate. 2. PRVC vent mode. 3. Decadron 4 mg iv q6h. 4. HOB up 30-45 degrees. 5. SSI for euglycemia. 6. Lovenox DVT px. 7. Pepcid. 8. NG to decompression and meds. 9. ENT consult. Overall impression: Patient presents with upper airway obstruction. After visualization, hypopharynx appears widely patent and cords are normal. Relaxant required so cord motion not appreciated. This crescendo stridor pattern with exertion s/p recent parathyroid surgery behaves like vocal cord dysfunction. I will ask the ENT service to evaluate. Problem Qualifiers (1) Fluid collection at surgical site: Qualified Codes: T88.8XXA - Other specified complications of surgical and medical care, not elsewhere classified, initial encounter Didier Solano MD May 24, 2017 08:40
[2017-05-24] MEDS: fentaNYL DRIP 250 ML IV PRN (10:58)
[2017-05-24] MEDS ORDERED: SODIUM CHLOR 0.9% 1000 ML INJ 1,000 ML IV ONE (16:00)
[2017-05-24 18:15] LABS: BILIRUBIN, URINE NEG (NEG); BLOOD, URINE NEG (NEG); GLUCOSE,URINE 300 mg/dL (NEG); KETONE, URINE NEG (NEG); MUCUS URINE FEW /lpf (OCC); NITRITE,URINE NEG (NEG); PH, URINE 5.5 (5.0-8.5); SQUAMOUS EPITHELIAL CELL URINE 1 /hpf (0-5); URIC ACID CRYSTALS, URINE FEW /hpf; URINE COLOR YELLOW (YELLW/STRAW); URINE LEUKOCYTE ESTERASE MOD (NEG)
[2017-05-24] MEDS: FUROSEMIDE 40 MG/4 ML VIAL IV PUSH SCH (21:20)
[2017-05-25] VITALS (9 sets, daily range): BP systolic 116–150; BP diastolic 64–72; PULSE 57–81; RESP 10–16; TEMP 97.7–99; O2SAT 94–100
[2017-05-25] MEDS: DEXAMETHASONE SOD PHOS 4 MG/ML VIAL IV PUSH SCH ×3 (02:50→12:53)
[2017-05-25] MEDS: CHLORHEXIDINE GLUCONATE 2 % 1 PACK (2 CLOTHS) TOP SCH (03:18)
[2017-05-25] MEDS: INSULIN NovoLIN REGULAR SUPPLEMENTAL SCALE SQ SCH ×2 (06:00→12:25)
[2017-05-25] MEDS: CHLORHEXIDINE 0.12% (ORAL KIT) 15 ML CUP MT SCH (07:59)
[2017-05-25] MEDS: DOCUSATE SODIUM 50 MG/SENNA 8.6 MG TAB PO SCH (07:59)
[2017-05-25] MEDS: VALSARTAN 40 MG TAB PO SCH (07:59)
[2017-05-25] MEDS: FAMOTIDINE 20 MG/2 ML VIAL IV PUSH SCH (07:59)
[2017-05-25] MEDS: FUROSEMIDE 40 MG/4 ML VIAL IV PUSH SCH (07:59)
--- NOTE | 2017-05-25 10:45 | HHI.CCPN ---
Subjective Remarks/Hospital Course 66 y/o woman s/p parathyroidectomy May 10 at [facility] (second operation for patient in the thyroid region). Developed severe SOB earlier today and came to ED with sridor and labored effort. She responded to racemic epinephrine but required 5 treatments over several hours because of recurrent symptoms. On arrival to [facility] she was tugging very mildly but with any exertion the strider worsened drastically. CT neck revealed supraglottic tissue obstructing airway. We attempted to ispect airway using low dose versed but the view was inadequate. With deeper sedation and relaxant the hypopharynx was easily inspected. All of the soft tissue was easily moved aside and this area was widely patent. The vocal cords were not edematous or inflamed. The glottic opening was slightly small but easily accommodated a #7 orotracheal tube. Below the cords was normal. 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 05/24: Gas exchange normal. Probably need to examine her cords while breathing spontaneously. I will see what ENT recommends. 05/25: Extubated 05/24 1800 hours and breathing with acceptable comfort. She tugs gently when she tries to talk for extended periods. The glottic opening is a little small and one cord is not working so with vigorous inspiratory effort she gets light stridor. Improved from last night. Continue steroids for 3 days. Objective Vital Signs Date Time Temp Pulse Resp B/P (MAP) Pulse Ox O2 Delivery O2 Flow Rate FiO2 05/25/17 10:22 99 Nasal Cannula 4.00 05/25/17 06:00 60 05/25/17 04:00 98.5 16 116/64 (81) 05/24/17 16:00 40 Intake and Output 05/25/17 05/25/17 05/26/17 08:00 16:00 00:00 Intake Total 723 ml Output Total 1575 ml Balance -852 ml Result Diagram: 05/24/17 0558 05/24/17 0558 Objective Remarks Gen: Alert, hoarse speech since surgery on 05/10. Head: Atraumatic. Neck: Supple, orally intubated General fullness, healing anterior transverse scar. Lungs: Clear, comfortable pattern. Heart: NL S1S2, RRR, No JVD. Abdomen: Benign, soft. BS active. No tenderness. Extremities: Warm, well perfused. Neuro: Moves 4 limbs with 5/5 power. Conversant and O X 3. Speech hoarse.Calm. A/P Problem List: (1) Acute respiratory failure ICD Code: J96.00 - Acute respiratory failure, unspecified whether with hypoxia or hypercapnia (2) Fluid collection at surgical site ICD Code: T88.8XXA - Other specified complications of surgical and medical care , not elsewhere classified, initial encounter Status: Acute (3) Shortness of breath ICD Code: R06.02 - Shortness of breath Status: Acute (4) Supraglottic edema ICD Code: J38.4 - Edema of larynx Status: Acute Assessment and Plan Plan: Discharge on PO decadron 10 mg q6h. Followup with Dr. Anglin - ENT arranged. Instruction receievd. Overall impression: Patient presented with upper airway obstruction. After visualization, hypopharynx appears widely patent. Exam by Dr. Anglin last evening revealed non-functioning vocal cord s/p recent parathyroid surgery at [facility]. Problem Qualifiers (1) Fluid collection at surgical site: Qualified Codes: T88.8XXA - Other specified complications of surgical and medical care, not elsewhere classified, initial encounter Didier Solano MD May 25, 2017 10:45
== END 2017-05-25 13:48 | disposition home or self-care (01) | DRG 208 ==
LOC: NEPC 01:55 → NEDA 06:39 → N03B 09:53
PROVIDERS: ADMIT Surgery Surgical Critical Care; ATTEND Surgery Surgical Critical Care
PROC: 5A1945Z Respiratory Ventilation, 24-96 Consecutive Hours (ICD-10-PCS; principal; 2017-05-23)
PROC: 0BH17EZ Insertion of Endotracheal Airway into Trachea, Via Natural or Artificial Opening (ICD-10-PCS; 2017-05-23)
PROC: 0CJS8ZZ Inspection of Larynx, Via Natural or Artificial Opening Endoscopic (ICD-10-PCS; 2017-05-23)
DX: J96.00 Acute respiratory failure, unspecified whether with hypoxia or hypercapnia (principal); J38.4 Edema of larynx; G83.9 Paralytic syndrome, unspecified; I10 Essential (primary) hypertension; M81.0 Age-related osteoporosis without current pathological fracture; R49.0 Dysphonia; Y83.8 Other surgical procedures as the cause of abnormal reaction of the patient, or of later complication, without mention of misadventure at the time of the procedure; E89.0 Postprocedural hypothyroidism; E78.5 Hyperlipidemia, unspecified; E11.9 Type 2 diabetes mellitus without complications; T88.8XXA Other specified complications of surgical and medical care, not elsewhere classified, initial encounter; J45.909 Unspecified asthma, uncomplicated; J38.3 Other diseases of vocal cords; E07.9 Disorder of thyroid, unspecified; Z87.891 Personal history of nicotine dependence; Z85.3 Personal history of malignant neoplasm of breast; Z79.84 Long term (current) use of oral hypoglycemic drugs
CPT/HCPCS: 31500; 70491; 71045; 80048; 80053; 81001; 82550; 82552; 83735; 83880; 84100; 84484; 85025; 85379; 85610; 85730; 93005; 94002; 94003; 94640; 94664; 96374; J1100; J1940; J2250; J2930; J3010; J7030; Q9967